=== PATIENT | male | born 1960 | race Caucasian/White ===

== ENCOUNTER 2017-12-09 06:14 | Emergency (ER) | payer OTHER ==
[2017-12-09 07:22] LABS: APPEARANCE,URINE SLIGHTLY-CLOUDY; BILIRUBIN,URINE NEGATIVE (NEGATIVE); COLOR,URINE YELLOW; GLUCOSE, URINE 50 mg/dL (NEGATIVE); KETONES,URINE NEGATIVE (NEGATIVE); LEUKOCYTE ESTERASE,URINE MODERATE (NEGATIVE); NITRITE,URINE NEGATIVE (NEGATIVE); PROTEIN,URINE 30 mg/dL (NEGATIVE); URINE SPECIFIC GRAVITY 1.017; UROBILINOGEN,URINE NEGATIVE mg/dL (<2.0)
--- NOTE | 2017-12-09 07:40 | RADIOLOGY REPORT (SQ) ---
CT abdomen and pelvis without contrast on 12/09/2017 at 7:26 AM CLINICAL INDICATION: Right lower quadrant pain, right-sided kidney stone TECHNIQUE: Multiple axial images are obtained throughout the abdomen and pelvis without the administration of contrast. This exam was performed according to our departmental dose-optimization program, which includes automated exposure control, adjustment of the mA and/or kV according to patient size and/or use of iterative reconstruction technique. Total DLP is 1087.14 mGy*cm. COMPARISON: None FINDINGS: Abdomen: The lung bases are clear. There is fatty infiltration of the liver. There is mild left hydronephrosis and left hydroureter to the level of a 5-6 mm left UVJ stone. No right-sided renal or ureteral stones or right hydronephrosis is noted. There is very mild left perinephric and periureteral stranding related to the obstruction. There is an apparent rounded higher density lesion in the right posterior liver measuring up to 4.7 cm. When feasible recommend follow-up liver protocol CT or MRI with contrast to better evaluate. The unenhanced solid abdominal organs are otherwise unremarkable. There is no abdominal adenopathy. There is no free fluid or free air within the abdomen. The abdominal portion of the GI tract is unremarkable. Pelvis: The prostate is mildly enlarged, please correlate with physical exam and PSA levels. There is no free fluid in the pelvis. The patient is status post a left inguinal hernia repair. There is no pelvic adenopathy. The patient is status post appendectomy. There is mild diverticulosis. The pelvic portion of the GI tract is otherwise unremarkable. Degenerative changes are noted in the spine. IMPRESSION: 1. Mild left hydronephrosis and hydroureter to the level of a 5-6 mm left UVJ stone. 2. Fatty infiltration of the liver with a 4.7 cm high density right posterior apparent hepatic lesion that is indeterminate. Recommend follow-up liver protocol CT or MRI with contrast. 3. Mild diverticulosis. 4. Mild prostate enlargement.
--- NOTE | 2017-12-09 08:10 | ER Document Report ---
ED General - General Chief Complaint: Possible Kidney Stone Stated Complaint: PASSING BLOOD IN URINE,RIGHT SIDE PAIN Time Seen by Provider: 12/09/17 06:46 Mode of Arrival: Ambulatory TRAVEL OUTSIDE OF THE [place] IN LAST 30 DAYS: No - HPI Patient complains to provider of: Flank pain over the last several days Onset: Other - Flank pain in the setting of having previous nephrolithiasis in the past, previously did require stenting with a 11 mm stone. He has not had any fevers or chills has had some persistent pain through the flank over last several days which does make it occasionally difficult for him to urinate. Denies any incontinence, abdominal pain constipation. - Related Data Allergies/Adverse Reactions: doxycycline [Doxycycline] Allergy (Verified 12/09/17 06:20) Past Medical History - General Information source: Patient - Social History Smoking Status: Never Smoker Frequency of alcohol use: Rare Family History: Reviewed & Not Pertinent Patient has suicidal ideation: No Patient has homicidal ideation: No - Past Medical History Cardiac Medical History: Reports: Hx Hypertension Renal/ Medical History: Reports: Hx Kidney Stones - Last one in 2014. Denies : Hx Peritoneal Dialysis Past Surgical History: Reports: Hx Appendectomy Review of Systems - Review of Systems -: Yes All other systems reviewed and negative Physical Exam - Vital signs Vitals: Temp Pulse Resp BP Pulse Ox 97.9 F 76 18 172/100 H 99 12/09/17 06:24 12/09/17 06:24 12/09/17 06:24 12/09/17 06:24 12/09/17 06:24 - General General appearance: Appears well In distress: None - HEENT Head: Normocephalic Eyes: Normal Conjunctiva: Normal Cornea: Normal Extraocular movements intact: Yes Eyelashes: Normal Pupils: PERRL - Respiratory Respiratory status: No respiratory distress Chest status: Nontender Breath sounds: Normal Chest palpation: Normal - Cardiovascular Rhythm: Regular Heart sounds: Normal auscultation Murmur: No - Abdominal Inspection: Normal Distension: No distension Tenderness: Other - Tender to percussion along the bilateral flanks - Back Back: CVA tenderness - Extremities General upper extremity: Normal inspection, Normal ROM General lower extremity: Normal inspection, Normal ROM Shoulder: Normal - Neurological Neuro grossly intact: Yes Cognition: Normal Orientation: AAOx4 [place] Scale Eye Opening: Spontaneous [place] Com[place] Scale Verbal: Oriented [place] Coma Scale Motor: Obeys Commands [place] Coma Scale Total: 15 - Psychological Associated symptoms: Normal affect Course - Re-evaluation Re-evalutation: 12/09/17 09:37 This is a 57-year-old man who previously had nephrolithiasis which did require stenting and retrieval as it was 11 mm at that time. He presents for evaluation of pain along his flank which he says is reminiscent of his previous nephrolithiasis. He specifically denies any fevers, chills, does endorse some dysuria and urgency. Has not had one in many many months. Is uncertain why he had the initial one. He Examination the gentleman does have CVA tenderness suggestive of possible nephrolithiasis as he did previously required instrumentation to retrieve it believe that he would benefit from imaging to ascertain the size of the stone, will plan for CT noncontrast study. CT does demonstrate a nephrolithiasis as well at does demonstrate what appears to be hepatic infiltrate, I did talk to the patient he has known about this liver lesion has been biopsied in the past. Updated him that there is infected kidney stone at this time which does demonstrate some hydronephrosis, his urine does demonstrate some pyuria and hematuria though he does not demonstrate any systemic signs of infection at this time. Given that he has a moderate-sized stone will plan for conservative management encouraged symptomatic treatment copious hydration follow-up with a urologist for possible intervention and return in case of fever or worsening pain he was in agreement with this at this time able tolerate p.o. We will discharge on a prescription of ciprofloxacin for presumptive coverage of potential UTI, pain medication, as well as Flomax. - Vital Signs Vital signs: Temp Pulse Resp BP Pulse Ox 98.4 F 76 20 166/91 H 97 12/09/17 08:28 12/09/17 08:28 12/09/17 08:28 12/09/17 08:28 12/09/17 08:28 - Laboratory Laboratory results interpreted by me: 12/09/17 06:32 Urine Protein 30 H Urine Glucose (UA) 50 H Urine Blood LARGE H Ur Leukocyte Esterase MODERATE H Discharge - Discharge Clinical Impression: Kidney stone on left side Condition: Good Disposition: HOME, SELF-CARE Instructions: Ciprofloxacin ([facility]), Flank Pain ([facility]), Kidney Stone ([facility]) Additional Instructions: He was seen today in the emergency department for your kidney stone. He had an evaluation including a physical exam and a CT of your abdomen which showed a kidney stone. There was also an identified lesion in your liver which you have had biopsied previously. Use the antibiotic prescribed to you over the next several days, use the pain medication only as needed, use ibuprofen and the Flomax to help with your pain as needed. Drink lots of water over the next several days. Follow-up with the urologist as shown. Prescriptions: Ciprofloxacin HCl [Cipro 500 mg Tablet] 500 mg PO BID #20 tablet Hydrocodone/Acetaminophen [Golden 5-325 mg Tablet] 1 tab PO Q8H PRN #12 tablet PRN Reason: For Pain Scale 4-5 Ibuprofen 400 mg PO TID #40 capsule Tamsulosin HCl [Flomax 0.4 mg Cap.sr] 0.4 mg PO DAILY #7 cap.sr.24h Referrals: GREG STEVEN MD [[facility]] - Follow up as needed GREG MATSON II, MD [[facility]] - Follow up as needed
[2017-12-09 08:51] VITALS: BP 166/91
== END 2017-12-09 08:33 | disposition home or self-care (01) ==
LOC: ER 06:14
DX: N13.2 Hydronephrosis with renal and ureteral calculous obstruction (principal); R31.9 Hematuria, unspecified; I10 Essential (primary) hypertension; K76.9 Liver disease, unspecified; Z88.0 Allergy status to penicillin
CPT/HCPCS: 74176; 81001; 87086; 99284

== ENCOUNTER 2020-01-19 20:12 | Emergency (ER) | payer BC, OTHER ==
--- NOTE | 2020-01-19 21:20 | ER Document Report ---
ED Medical Screen (RME) - General Chief Complaint: Leg Pain Stated Complaint: LEFT LEG PAIN Time Seen by Provider: 01/19/20 21:16 Mode of Arrival: Ambulatory Information source: Patient Notes: 59-year-old male patient presents emergency department left lower extremity pain and swelling. Patient reports this started a few days ago. He denies any history of DVT or PE. He denies any injury. He does report a history of gout. States this feels different from gout he has never had gout in his knee. He has not on any blood thinners. Tenderness to palpate over the left popliteal area. No obvious swelling noted. I have greeted and performed a rapid initial assessment of this patient. A comprehensive ED assessment and evaluation of the patient, analysis of test results and completion of the medical decision making process will be conducted by additional ED providers. I have specifically instructed the patient or family members with the patient to immediately return to any nursing staff should anything change in the patient's condition or with their chief complaint. TRAVEL OUTSIDE OF THE [place] IN LAST 30 DAYS: No - Related Data Allergies/Adverse Reactions: doxycycline [Doxycycline] Allergy (Verified 12/09/17 06:20) Past Medical History - Past Medical History Cardiac Medical History: Reports: Hx Hypertension Renal/ Medical History: Reports: Hx Kidney Stones - Last one in 2014. Denies: Hx Peritoneal Dialysis Past Surgical History: Reports: Hx Appendectomy
--- NOTE | 2020-01-19 22:37 | RADIOLOGY REPORT (SQ) ---
EXAM DESCRIPTION: US EXTREMITY VEINS UNILATERAL COMPLETED DATE/TME: 01/19/2020 21:19 CLINICAL HISTORY: 59 years, Male, LLE pain behind knee COMPARISON: EXAM DESCRIPTION: CLINICAL HISTORY: 59 years Male LLE pain behind knee COMPARISON: None. TECHNIQUE: Duplex and color Doppler imaging performed to evaluate the extremity deep venous structures. Compression imaging and augmentation imaging performed. FINDINGS: No thrombus is identified in the deep venous structures imaged. There is normal flow, compressibility, and augmentation throughout. IMPRESSION: No DVT is identified.
--- NOTE | 2020-01-20 10:39 | ER Document Report ---
Entered by MIGUEL JACINTO SCRIBE 01/20/20 1016 Acting as scribe for:VERN DANG MD ED General - General Chief Complaint: Leg Pain Stated Complaint: LEFT LEG PAIN Time Seen by Provider: 01/19/20 21:16 Mode of Arrival: Ambulatory Information source: Patient Notes: This 59 year old male patient presents to the emergency department today with complaints of left knee pain. Patient reports that he has a history of gout but it is usually in his feet. He mentions that his left knee pain today feels like gout has in the past. TRAVEL OUTSIDE OF THE [place] IN LAST 30 DAYS: No - Related Data Allergies/Adverse Reactions: doxycycline [Doxycycline] Allergy (Verified 01/19/20 21:19) Past Medical History - General Information source: Patient - Social History Smoking Status: Never Smoker Cigarette use (# per day): No Frequency of alcohol use: Occasional Drug Abuse: None Lives with: Family Family History: Reviewed & Not Pertinent - Past Medical History Cardiac Medical History: Reports: Hx Hypertension Renal/ Medical History: Reports: Hx Kidney Stones - Last one in 2014 Past Surgical History: Reports: Hx Appendectomy Review of Systems - Review of Systems Constitutional: No symptoms reported EENT: No symptoms reported Cardiovascular: No symptoms reported Respiratory: No symptoms reported Gastrointestinal: No symptoms reported Genitourinary: No symptoms reported Male Genitourinary: No symptoms reported Musculoskeletal: See HPI, Joint pain - left knee pain Skin: No symptoms reported Hematologic/Lymphatic: No symptoms reported Neurological/Psychological: No symptoms reported -: Yes All other systems reviewed and negative Physical Exam - Vital signs Vitals: Temp Pulse Resp BP Pulse Ox 98.5 F 83 16 171/92 H 98 01/19/20 21:24 01/19/20 21:24 01/19/20 21:24 01/19/20 21:24 01/19/20 21:24 - Notes Notes: Physical Exam: General: Alert, appears well. HEENT: Normocephalic. Atraumatic. PERRL. Extraocular movements intact. Oropharynx clear. Neck: Supple. Non-tender. Respiratory: No respiratory distress. Clear and equal breath sounds bilaterally. Cardiovascular: Regular rate and rhythm. Abdominal: Normal Inspection. Non-tender. No distension. Normal Bowel Sounds. Back: No gross abnormalities. Extremities: Moves all four extremities. Upper extremities: Normal inspection. Normal ROM. Lower extremities: Left knee is a little warm compared to the right. There is mild joint effusion. It is most tender to palpate the medial collateral ligament and lateral collateral ligament. It is also tender in the popliteal fossa region. There is slightly more pretibial edema on the left than on the right. Neurological: Normal cognition. AAOx4. Normal speech. Psychological: Normal affect. Normal Mood. Skin: Warm. Dry. Normal color. Course - Vital Signs Vital signs: Temp Pulse Resp BP Pulse Ox 98.5 F 77 20 148/79 H 98 01/20/20 14:11 01/20/20 14:11 01/20/20 14:11 01/20/20 14:11 01/20/20 14:11 - Laboratory Result Diagrams: 01/20/20 10:35 01/20/20 10:35 Laboratory results interpreted by me: 01/20/20 01/20/20 10:35 10:35 Hgb 12.1 L Hct 35.5 L RDW 14.8 H Plt Count 134 L ESR 49 H Glucose 161 H C-Reactive Protein 15.6 H - Diagnostic Test Radiology reviewed: Image reviewed, Reports reviewed - Left knee shows joint effusion with no other abnormality. - Consults Dr. Stevenson Time consulted: 15:30 Consulted provider: follow-up in office - Reviewing the history, physical findings, lab work, specifically the synovial fluid analysis he thinks this is most likely gout. We will treat as gout and follow-up in the office this week. Procedures - Joint Aspiration Left Knee Consent obtained: Yes Joint aspiration pre-procedure: Betadine prep applied, Sterile drapes applied Needle size: 18 Amount/type of drainage: 30ml straw to hazy colored fluid Number of attempts: 1 Complications: No Discharge - Discharge Clinical Impression: Knee effusion, left Gout attack Qualifiers: Gout site: knee Gout etiology: unspecified cause Laterality: left Qualified Code(s): M10.9 - Gout, unspecified Condition: Stable Disposition: HOME, SELF-CARE Additional Instructions: Gout: You most likely have gout in your left knee. Gout is a problem caused by an excess of uric acid, a natural chemical found in the body. The cause of this disease is unknown. Gout arthritis occurs when crystals of uric acid form in the joints. The big toe is the most common joint involved, but any joint can become affected. Persons with gout may also form uric acid kidney stones, resulting in flank pain and blood in the urine. Nodules of uric acid may form under the skin. The first step of treatment is to decrease the inflammation in the joint with antiinflammatory medication. Medication to lower the uric acid level in the blood may then be prescribed. This medication should be taken regularly, as any sudden change in dosage may provoke an attack of gout. Some foods, such as red meat, can provoke an attack in some gout sufferers. Call the doctor if new symptoms arise, or if you do not improve. Take medication as prescribed. Start the prednisone tomorrow--you received today's dose here in the emergency room. Take the pain medication as dispensed today if needed. Take 2 Aleve every 12 hours for the next few days. Use the knee immobilizer to protect the knee, you may want to get a smaller, more manageable knee brace from the drugstore later. Limit walking and weightbearing on the left knee until the inflammation and swelling has resolved. Follow-up with one of the orthopedic surgeons at [facility] this week--call tomorrow morning for an appointment. RETURN TO THE EMERGENCY ROOM IF ANY NEW OR WORSENING SYMPTOMS. Prescriptions: Colchicine [Colcrys 0.6 mg Tablet] 0.6 mg PO Q6 PRN #10 tablet PRN Reason: Prednisone [Deltasone 10 mg Tablet] 10 mg PO ASDIR PRN #21 tablet PRN Reason: Referrals: [facility] [Provider Group] - Follow up in 3-5 days (Call the office tomorrow morning to schedule an appointment this week.) I personally performed the services described in the documentation, reviewed and edited the documentation which was dictated to the scribe in my presence, and it accurately records my words and actions.
[2020-01-20] MEDS ORDERED: NAPROXEN 250 MG TABLET PO ONE (10:41)
[2020-01-20] MEDS ORDERED: OXYCODONE-ACETAMINOPHEN 5-325 MG TABLET PO ONE (10:41)
[2020-01-20 11:04] LABS: ABSOLUTE MONOCYTES (AUTO) 0.4 10^3/uL (0.1-1.4); ABSOLUTE NEUT (AUTO) 2.9 10^3/uL (1.7-8.2); BASOPHILS % (AUTO) 0.2 % (0-2); EOSINOPHILS % (AUTO) 0.3 % (0-6); HEMATOCRIT 35.5 % (37.9-51.0); HEMOGLOBIN 12.1 g/dL (13.5-17.0); LYMPHOCYTES % (AUTO) 37.4 % (13-45); MEAN CORPUSCULAR HEMOGLOBIN 27.7 pg (27.0-33.4); MEAN CORPUSCULAR HGB CONC 34.1 g/dL (32.0-36.0); MEAN CORPUSCULAR VOLUME 81 fl (80-97); MONOCYTES % (AUTO) 7.6 % (3-13); PLATELET COUNT 134 10^3/uL (150-450); RED BLOOD COUNT 4.37 10^6/uL (4.35-5.55); RED CELL DISTRIBUTION WIDTH 14.8 % (11.5-14.0); SEGMENTED NEUTROPHILS % (AUTO) 54.5 % (42-78); TOTAL CELLS COUNTED % (AUTO) 100 %; WHITE BLOOD COUNT 5.4 10^3/uL (4.0-10.5)
[2020-01-20 11:29] LABS: ALBUMIN 4.3 g/dL (3.5-5.0); ALKALINE PHOSPHATASE 62 U/L (38-126); ANION GAP 15 (5-19); ASPARTATE AMINO TRANSFERASE 46 U/L (17-59); BILIRUBIN,DIRECT 0.3 mg/dL (0.0-0.4); BILIRUBIN,TOTAL 0.5 mg/dL (0.2-1.3); BLOOD UREA NITROGEN 13 mg/dL (7-20); C-REACTIVE PROTEIN 15.6 mg/L (<10.0); CALCIUM 9.1 mg/dL (8.4-10.2); CARBON DIOXIDE 22 mmol/L (22-30); CHLORIDE 101 mmol/L (98-107); GLUCOSE 161 mg/dL (75-110); TOTAL PROTEIN 7.8 g/dL (6.3-8.2)
[2020-01-20 11:52] LABS: ERYTHROCYTE SEDIMENTATION RATE 49 mm/hr (0-20)
--- NOTE | 2020-01-20 12:34 | RADIOLOGY REPORT (SQ) ---
EXAM DESCRIPTION: KNEE LEFT 4 VIEW IMAGES COMPLETED DATE/TIME: 01/20/2020 12:15 pm REASON FOR STUDY: effusion, pain COMPARISON: None. NUMBER OF VIEWS: Four views. TECHNIQUE: AP, lateral, and both oblique radiographic images acquired of the left knee. LIMITATIONS: None. FINDINGS: MINERALIZATION: Normal. BONES: No acute fracture or dislocation. No worrisome bone lesions. JOINT: Joint effusion. SOFT TISSUES: No soft tissue swelling. No radio-opaque foreign body. OTHER: No other significant finding. IMPRESSION: Joint effusion. TECHNICAL DOCUMENTATION: JOB ID: [id number] 2010 [employer]- All Rights Reserved Reading location - IP/workstation name: [email or web address]
[2020-01-20 14:22] LABS: CALCIUM PYROPHOSPHATE CRYSTALS NONE OBSERVED; MONOSODIUM URATE CRYSTALS NONE OBSERVED; OTHER CRYSTALS NONE OBSERVED
[2020-01-20 15:05] LABS: FLUID APPEARANCE HAZY; FLUID COLOR YELLOW; FLUID SOURCE KNEE; FLUID TYPE SYNOVIAL; FLUID VISCOSITY SLIGHTLY VISCOUS
[2020-01-20] MEDS ORDERED: COLCHICINE 0.6 MG TABLET PO ONE (15:40)
[2020-01-20] MEDS ORDERED: PREDNISONE 20 MG TABLET PO ONE (15:41)
[2020-01-20] MEDS ORDERED: INFLUENZA QUAD (6MOS+) 2020-21 VAC 0.5 ML SYR IM ONE (15:41)
[2020-01-20] MEDS ORDERED: HYDROCODONE/ACETAMINOPHEN 5-325 MG (6 TAB/ER DISP) PO PRN (15:48)
[2020-01-20 16:25] VITALS: BP 167/88
== END 2020-01-20 16:25 | disposition home or self-care (01) ==
LOC: ER 20:12
DX: M25.462 Effusion, left knee (principal); M10.9 Gout, unspecified; M79.605 Pain in left leg; I10 Essential (primary) hypertension; Z87.442 Personal history of urinary calculi
CPT/HCPCS: 99285; 36415; 87205; 87070; 84550; 85025; 85652; 89050; 89060; 87075; 86140; 80053; 93971; 73564; 90686; 20610; G0008 ×2; J7512; 90471

== ENCOUNTER → 2020-02-19 | Outpatient (CLI) | payer BC ==
[2020-02-19 18:06] LABS: APPEARANCE,URINE CLEAR; BILIRUBIN,URINE NEGATIVE (NEGATIVE); COLOR,URINE YELLOW; GLUCOSE, URINE NEGATIVE (NEGATIVE); KETONES,URINE NEGATIVE (NEGATIVE); LEUKOCYTE ESTERASE,URINE NEGATIVE (NEGATIVE); NITRITE,URINE NEGATIVE (NEGATIVE); PROTEIN,URINE >=500 mg/dL (NEGATIVE); UROBILINOGEN,URINE NEGATIVE mg/dL (<2.0)
[2020-02-19 18:11] LABS: ALBUMIN 4.6 g/dL (3.5-5.0); ALKALINE PHOSPHATASE 73 U/L (38-126); ANION GAP 13 (5-19); ASPARTATE AMINO TRANSFERASE 59 U/L (17-59); BILIRUBIN,DIRECT 0.2 mg/dL (0.0-0.4); BILIRUBIN,TOTAL 0.3 mg/dL (0.2-1.3); BLOOD UREA NITROGEN 13 mg/dL (7-20); C-REACTIVE PROTEIN 5.1 mg/L (<10.0); CALCIUM 9.3 mg/dL (8.4-10.2); CARBON DIOXIDE 23 mmol/L (22-30); CHLORIDE 106 mmol/L (98-107); GLUCOSE 97 mg/dL (75-110); POTASSIUM 4.4 mmol/L (3.6-5.0); TOTAL PROTEIN 8.2 g/dL (6.3-8.2)
[2020-02-19 18:30] LABS: HEMATOCRIT 34.4 % (37.9-51.0); HEMOGLOBIN 12.1 g/dL (13.5-17.0); MEAN CORPUSCULAR HEMOGLOBIN 28.1 pg (27.0-33.4); MEAN CORPUSCULAR HGB CONC 35.1 g/dL (32.0-36.0); MEAN CORPUSCULAR VOLUME 80 fl (80-97); PLATELET COUNT 156 10^3/uL (150-450); RED CELL DISTRIBUTION WIDTH 15.1 % (11.5-14.0); WHITE BLOOD COUNT 4.2 10^3/uL (4.0-10.5)
[2020-02-19 18:44] LABS: ERYTHROCYTE SEDIMENTATION RATE 53 mm/hr (0-20)
[2020-02-19 18:57] LABS: ABSOLUTE LYMPHOCYTES# (MANUAL) 1.3 10^3/uL (0.5-4.7); ABSOLUTE MONOCYTES # (MANUAL) 0.5 10^3/uL (0.1-1.4); BASOPHILS % (MANUAL) 0 % (0-2); EOSINOPHILS % (MANUAL) 3 % (0-6); LYMPHOCYTES % (MANUAL) 31 % (13-45); MONOCYTES % (MANUAL) 12 % (3-13); SEGMENTED NEUTROPHILS % (MAN) 53 % (42-78); TOTAL CELLS COUNTED 100
[2020-02-19 18:58] LABS: ANISOCYTOSIS SLIGHT; HYPOCHROMASIA SLIGHT
[2020-02-19 18:59] LABS: PLATELET COMMENT ADEQUATE
--- NOTE | 2020-02-19 19:03 | RADIOLOGY REPORT (SQ) ---
EXAM DESCRIPTION: CHEST PA/LATERAL IMAGES COMPLETED DATE/TIME: 02/19/2020 5:06 pm REASON FOR STUDY: ENCNTR FOR FOLLOW-UP EXAM AFTER TRTMT FOR MALIGNANT NEOPLASM COMPARISON: None. EXAM PARAMETERS: NUMBER OF VIEWS: two views TECHNIQUE: Digital Frontal and Lateral radiographic views of the chest acquired. RADIATION DOSE: NA LIMITATIONS: none FINDINGS: LUNGS AND PLEURA: No opacities, masses or pneumothorax. No pleural effusion. MEDIASTINUM AND HILAR STRUCTURES: No masses or contour abnormalities. HEART AND VASCULAR STRUCTURES: Heart normal size. No evidence for failure. BONES: No acute findings. HARDWARE: None in the chest. OTHER: No other significant finding. IMPRESSION: NO SIGNIFICANT RADIOGRAPHIC FINDING IN THE CHEST. TECHNICAL DOCUMENTATION: JOB ID: [id number] 2010 [employer]- All Rights Reserved Reading location - IP/workstation name: [email or web address]
--- OUTSIDE RECORDS SUMMARY | 2020-02-20 15:43 | XMS REPORT ---
:1960 [facility] [address] [place] [id number] Care Team Providers Name Role Phone Patricia Vasquez Primary Care Physician Unavailable Anna Marie Attending Clinician Unavailable Mango Haque Admitting Clinician Unavailable Allergies, Adverse Reactions, Alerts This patient has no known allergies or adverse reactions. Medications This patient has no known medications. Problems This patient has no known problems. Procedures This patient has no known procedures. Results This patient has no known results. Encounters Start End Encounter Admission Attending Care Care Encounter Date/Time Date/Time Type Type Clinicians Facility Department ID 2015-10-24 2015-10-24 Inpatient ER OMAR Thrasher [facility] [id number] 00:28:00 18:28:00 Bryanna Payers Payer Name Policy Type Policy Number Effective Date Expiration D ate Social History This patient has no known social history. Vital Signs This patient has no known vital signs.
== END ==
LOC: OD 16:30
PROVIDERS: ATTEND Dermatology
DX: Z08 Encounter for follow-up examination after completed treatment for malignant neoplasm (principal); Z85.828 Personal history of other malignant neoplasm of skin; R59.0 Localized enlarged lymph nodes
CPT/HCPCS: 36415; 71046; 80053; 81001; 84153; 85025; 85652; 86140